=== PATIENT | male | born 1990 ===

== ENCOUNTER 2020-01-23 22:19 | Emergency (ER) | payer SELFPAY ==
[~2020-01-23] VITALS: Ht 182.9 cm; Wt 79.5 kg
[2020-01-23] MEDS ORDERED: PROCHLORPERAZINE 5 MG/ML, 2ML IVPush ONE (23:00)
[2020-01-23] MEDS ORDERED: SODIUM CHLORIDE 0.9% 1,000ML IVBOLUS ONE (23:00)
[2020-01-23] MEDS ORDERED: ACETAMINOPHEN 500 MG TABLET PO ONE (23:00)
[2020-01-23] MEDS ORDERED: DIPHENHYDRAMINE 50 MG/ML, 1ML IVPush ONE (23:00)
[2020-01-23] MEDS ORDERED: SODIUM CHLORIDE FLUSH 10ML SYR IVF ONE (23:00)
[2020-01-23] MEDS ORDERED: SUMATRIPTAN 25 MG TABLET ONE (23:25)
[2020-01-23] MEDS ORDERED: IBUPROFEN 600 MG TABLET ONE (23:25)
[2020-01-23] MEDS ORDERED: DIPHENHYDRAMINE 25 MG CAPSULE ONE (23:25)
[2020-01-23] MEDS ORDERED: PROCHLORPERAZINE 10MG TABLET ONE (23:26)
[2020-01-23] MEDS ORDERED: IBUPROFEN 600 MG TABLET PO ONE (23:30)
[2020-01-23] MEDS ORDERED: PROCHLORPERAZINE 10MG TABLET PO ONE (23:30)
[2020-01-23] MEDS ORDERED: IBUPROFEN 200 MG TABLET PO ONE (23:30)
[2020-01-23] MEDS ORDERED: SUMATRIPTAN 25 MG TABLET PO PRN (23:30)
[2020-01-23] MEDS ORDERED: DIPHENHYDRAMINE 25 MG CAPSULE PO ONE (23:30)
--- NOTE | 2020-01-23 23:36 | NUR ---
PT RESTING IN BED ON CELLPHONE. APPEARS IN NO ACUTE DISTRESS.
[2020-01-24 00:17] VITALS: BP 126/72
--- NOTE | 2020-01-24 00:18 | NUR ---
STATES PAIN IS "WAY BETTER"
== END 2020-01-24 00:47 | disposition home or self-care (01) ==
LOC: ED 01-24 00:16
DX: G43.011 Migraine without aura, intractable, with status migrainosus (principal); R00.0 Tachycardia, unspecified
CPT/HCPCS: 70450; 93005; 99284; Q0163; Q0164